=== PATIENT | female | born 1970 | race Two or more races ===

== ENCOUNTER 2017-04-14 21:14 | Emergency (ER) | payer OTHER ==
[2017-04-14] MEDS ORDERED: ONDANSETRON *ODT* 4 MG TABLET SL ONE (21:50)
--- NOTE | 2017-04-14 21:51 | PDOC ---
Rapid Medical Evaluation Chief Complaint: Nausea/Vomiting Time Seen by Provider: 04/14/17 21:45 Medical Evaluation: 04/14/17 21:46 CC; tactile temp x 2 days, weakness, with nausea and vomiting since today. patient reports upper back pain. denies chest pain/ drank lemonade with vodka ( small amount)and symptoms worsened. no pmhx: thyroid surgery 4 years ago. PE: patient alert ox3. + epigastric tenderness . Plan; UA, urine , cbc, cmp,, lipase/ patient to the ED for further management of care. 04/14/17 21:51
[2017-04-14 21:53] VITALS: BP 108/63; PULSE 87; TEMP 98.4; BMI 23.1
--- NOTE | 2017-04-14 23:15 | PDOC ---
History of Present Illness - General Chief Complaint: Pain Stated Complaint: LOW BP Time Seen by Provider: 04/14/17 21:45 History Source: Patient - History of Present Illness Initial Comments: 04/15/17 00:42 46 year old female c/o nausea, vomiting and weakness after drinking one shot of vodka with lemonade. patient prior to this patient with cold symptoms and was given as a natural remedy by family member. patient reports not drinking Past History - Past Medical History Allergies/Adverse Reactions: Allergies Allergy/AdvReac Type Severity Reaction Status Date / Time No Known Allergies Allergy Verified 04/14/17 21:46 COPD: No - Suicide/Smoking/Psychosocial Hx Smoking History: Never smoked Information on smoking cessation initiated: No Hx Alcohol Use: No Drug/Substance Use Hx: No Substance Use Type: Alcohol Review of Systems - Review of Systems Able to Perform ROS?: Yes Is the patient limited Sen[place]e proficient: No Respiratory: Yes: Cough ABD/GI: Yes: Nausea, Vomiting *Physical Exam - Vital Signs Last Vital Signs Temp Pulse Resp BP Pulse Ox 98.4 F 87 16 108/63 98 04/14/17 21:46 04/14/17 21:46 04/14/17 21:46 04/14/17 21:46 04/14/17 21:46 - Physical Exam General Appearance: Yes: Appropriately Dressed, Mild Distress, Other ( normocephalic) Respiratory/Chest: positive: Lungs Clear, Normal Breath Sounds Gastrointestinal/Abdominal: positive: Normal Bowel Sounds, Tender (epigastric area), Soft. negative: Flat, Organomegaly, Pulsatile Mass, Increased Bowel Sounds, Decreased BS, Protuberent, Distended, Guarding, Rebound, Tenderness, Hernia, Mass, Hepatomegaly, Spleenomegaly, Other Musculoskeletal: positive: Normal Inspection Extremity: positive: Normal Capillary Refill, Normal Inspection, Normal Range of Motion Integumentary: positive: Normal Color, Dry, Warm Neurologic: positive: Fully Oriented, Alert ED Treatment Course - LABORATORY CBC & Chemistry Diagram: 04/15/17 00:22 04/15/17 00:22 Progress Note - Progress Note Progress Note: A: alcohol intoxication P: cbc cmp alcohol level IVF zofran Medical Decision Making - Medical Decision Making 04/15/17 01:50 patient alert walking around. tolerated PO. no epigastric tenderness. reports feeling better. will d/c home. *DC/Admit/Observation/Transfer Diagnosis at time of Disposition: Alcohol intoxication Qualifiers: Complication of substance-induced condition: uncomplicated Qualified Code(s): F10.920 - Alcohol use, unspecified with intoxication, uncomplicated - Discharge Dispostion Disposition: HOME - Referrals - Patient Instructions Printed Discharge Instructions: DI for Alcoholic Gastritis Additional Instructions: drink plenty of fluids. avoid alcohol intake follow up with your doctor as soon as possible. - Post Discharge Activity
[2017-04-14] MEDS ORDERED: ONDANSETRON 4 MG/2 ML VIAL IVPB ONE (23:28)
[2017-04-14] MEDS ORDERED: SODIUM CHLORIDE 1,000 ML IV STA (23:28)
[2017-04-14] MEDS ORDERED: ONDANSETRON 4 MG/2 ML VIAL ONE (23:49)
[2017-04-15 00:32] LABS: MCH 28.7 pg (25.7-33.7)
[2017-04-15 00:34] LABS: BASO % 0.6 % (0-2.0); EOS % 0.2 % (0-4.5); HEMATOCRIT 42.8 % (32.4-45.2); HEMOGLOBIN 14.1 GM/dL (10.7-15.3); LYMPH % 20.3 % (8-40); MEAN PLT VOLUME 7.7 fl (7.5-11.1); MONO % 7.1 % (3.8-10.2); NEUT % 71.8 % (42.8-82.8); PLATELET COUNT 253 K/MM3 (134-434); RBC 4.92 M/mm3 (3.60-5.2); RDW 14.1 % (11.6-15.6); WHITE BLOOD COUNT 4.4 K/mm3 (4.0-10.0)
[2017-04-15 01:12] LABS: ALBUMIN 3.9 g/dl (3.4-5.0); ANION GAP 6 (8-16); BILIRUBIN,TOTAL 0.3 mg/dL (0.2-1.0); BLOOD UREA NITROGEN 9 mg/dL (7-18); CALCIUM 8.5 mg/dL (8.5-10.1); CHLORIDE 102 mmol/L (98-107); CO2 33 mmol/L (21-32); CREATININE 0.6 mg/dL (0.55-1.02); GLUCOSE,RANDOM 90 mg/dL (74-106); LIPASE 170 U/L (73-393); POTASSIUM 4.5 mmol/L (3.5-5.1); SGOT/AST 18 U/L (15-37); SGPT/ALT 23 U/L (12-78); SODIUM 141 mmol/L (136-145); TOT PROT 7.4 g/dl (6.4-8.2)
[2017-04-15 01:13] LABS: ALK PHOS 67 U/L (45-117)
== END 2017-04-15 02:59 | disposition home or self-care (01) ==
LOC: JER 21:14
PROC: 3E033GC Introduction of Other Therapeutic Substance into Peripheral Vein, Percutaneous Approach (ICD-10-PCS; principal; 2017-04-14)
DX: F10.920 Alcohol use, unspecified with intoxication, uncomplicated (principal); Y90.0 Blood alcohol level of less than 20 mg/100 ml
CPT/HCPCS: 36415; 80053; 80307; 83690; 85025; 99283-25

== ENCOUNTER 2023-11-08 04:00 | Emergency (ER) | payer OTHER ==
[2023-11-08 04:08] VITALS: BP 120/79; PULSE 72; RESP 20; TEMP 97.6; BMI 25.8
[2023-11-08] MEDS ORDERED: KETOROLAC TROMETHAMINE 30 MG/1 ML VIAL ONE (04:57)
[2023-11-08] MEDS ORDERED: LIDOCAINE 4% PATCH TP ONE (04:57)
[2023-11-08] MEDS ORDERED: CYCLOBENZAPRINE HCL 5 MG TABLET ONE (04:57)
[2023-11-08] MEDS: CYCLOBENZAPRINE HCL 10 MG TABLET (FP) PO ONE (05:03)
[2023-11-08] MEDS: LIDOCAINE 4% PATCH TP ONE (05:03)
[2023-11-08] MEDS: KETOROLAC TROMETHAMINE 30 MG/1 ML VIAL IM PRN (05:04)
[2023-11-08] MEDS ORDERED: CYCLOBENZAPRINE HCL 5 MG TABLET PO SCH (10:00)
[2023-11-08] MEDS ORDERED: LIDOCAINE PATCH REMOVAL MC ONE (17:00)
== END 2023-11-08 05:07 | disposition home or self-care (01) ==
LOC: JER 04:00
PROC: 3E0133Z Introduction of Anti-inflammatory into Subcutaneous Tissue, Percutaneous Approach (ICD-10-PCS; principal; 2023-11-08)
DX: M54.50 Low back pain, unspecified (principal); R11.10 Vomiting, unspecified
CPT/HCPCS: 96372; 99284-25